=== PATIENT | male | born 1970 | race Caucasian/White ===

== ENCOUNTER → 2017-04-29 | Outpatient (CLI) | payer MEDICARE, MEDICAID ==
--- NOTE | 2017-04-29 13:47 | RADIOLOGY REPORT (SQ) ---
EXAM DESCRIPTION: U/S ABDOMEN COMPLETE W/O DOP COMPLETED DATE/TIME: 04/29/2017 12:35 pm REASON FOR STUDY: R10.9 ABDOMINAL PAIN, UNSPECIFIED ABDOMINAL LOCATION R10.9 UNSPECIFIED ABDOMINAL PAIN K85.90 ACUTE PANCREATITIS WITHOUT NECROSIS OR INFECTION, UNS COMPARISON: None. TECHNIQUE: Dynamic and static grayscale images acquired of the abdomen and recorded on PACS. Additio nal selected color Doppler and spectral images recorded. LIMITATIONS: Patient is autistic and was unable to cooperate with this scan FINDINGS: PANCREAS: Midline pancreas unremarkable. LIVER: Normal size liver. There is diffuse mild increased echogenicity from fatty infiltration or di ffuse hepatocellular disease. No biliary ductal dilatation LIVER VASCULATURE: Normal directional flow of the main portal vein and hepatic veins. GALLBLADDER: No stones. Normal wall thickness. No pericholecystic fluid. ULTRASOUND-DETECTED KAUR'S SIGN: Negative. INTRAHEPATIC DUCTS AND COMMON DUCT: CBD and intrahepatic ducts normal caliber. No filling defects. INFERIOR VENA CAVA: Normal flow. AORTA: No aneurysm. RIGHT KIDNEY: Normal size. Normal echogenicity. No solid or suspicious masses. No hydronephros is. No calcifications. LEFT KIDNEY: Normal size. Normal echogenicity. No solid or suspicious masses. No hydronephrosi s. No calcifications. SPLEEN: Limited visualization. No splenomegaly PERITONEAL AND PLEURAL SPACES: No ascites or effusions. OTHER: No other significant finding. IMPRESSION: No gallstones Increased echogenicity of the liver parenchyma, could be seen in diffuse hepatocellular disease or fa tty infiltration TECHNICAL DOCUMENTATION: JOB ID: [id number] [employer]- All Rights Reserved
== END ==
LOC: RAD 10:49
PROVIDERS: ATTEND Family Medicine
DX: R10.9 Unspecified abdominal pain (principal)
CPT/HCPCS: 76700

== ENCOUNTER → 2018-08-01 | Day surgery (SDC) | payer MEDICARE, MEDICAID ==
[~2018-08-01] MED LIST: DIPHENHYDRAMINE HCL 50 MG/ML VIAL ONE; EPINEPHRINE INJ 1 MG/10 ML DISP.SYRIN ONE; FLUMAZENIL INJ 0.5 MG/5 ML VIAL ONE; GLUCAGON,HUMAN RECOMB 1 MG INJ ONE; NALOXONE HCL INJ/PF 0.4 MG/1 ML SDV ONE; ONDANSETRON HCL INJ/PF 4 MG/2 ML SDV ONE
[2018-08-01] MEDS: MIDAZOLAM 2 MG/2 ML INJ ONE ×4 (15:45→16:42)
[2018-08-01] MEDS: FENTANYL CITRATE INJ/PF 100 MCG/2 ML AMPUL ONE ×2 (16:45→16:52)
[2018-08-02 08:27] VITALS: BP 142/100
== END ==
LOC: END 15:10
PROVIDERS: ATTEND Internal Medicine Gastroenterology
DX: R10.13 Epigastric pain (principal); R63.4 Abnormal weight loss
CPT/HCPCS: J2250; J3010; J0171; J1200; J1610; J2310; J2405; J3490

== ENCOUNTER 2019-06-15 00:31 | Emergency (ER) | payer MEDICARE, MEDICAID ==
[2019-06-15 00:42] VITALS: BP 142/98
--- NOTE | 2019-06-15 09:08 | ER Document Report ---
ED Wound - General Chief Complaint: Laceration Stated Complaint: FALL, HEAD INJURY Time Seen by Provider: 06/15/19 08:17 Primary Care Provider: DOMINGUEZ HART MD [Primary Care Provider] - Follow up as needed Notes: Patient is a 49-year-old male with a history of autism (is non verbal), hypothyroidism, hyperlipidemia and insomnia who presents to the emergency department with a chief complaint of head injury. Patient is a resident at [facility]. They state that he walked into the restroom last night and came out with a laceration to his forehead. This was unwitnessed. They state he is not on blood thinners. Staff members report that the patient has been acting himself and that becoming agitated when out of his element as per his normal. Patient has not had any vomiting. They deny any other injury. They report his tetanus shot was updated in 2017. They report this occurred around 11 PM last night. TRAVEL OUTSIDE OF THE [place] IN LAST 30 DAYS: No - Related Data Allergies/Adverse Reactions: Cephalosporins Adverse Reaction (Verified 06/15/19 00:44) phenytoin [From Dilantin] Adverse Reaction (Verified 06/15/19 00:44) Past Medical History - Social History Smoking Status: Never Smoker Frequency of alcohol use: None Drug Abuse: None Lives with: Other - [facility] Family History: Reviewed & Not Pertinent Patient has suicidal ideation: No Patient has homicidal ideation: No - Past Medical History Cardiac Medical History: Denies: Hx Coronary Artery Disease, Hx Heart Attack, Hx Hypertension Pulmonary Medical History: Denies: Hx Asthma, Hx Bronchitis, Hx COPD, Hx Pneumonia Neurological Medical History: Denies: Hx Cerebrovascular Accident, Hx Seizures Musculoskeletal Medical History: Denies Hx Arthritis - Immunizations Hx Diphtheria, Pertussis, Tetanus Vaccination: Yes Physical Exam - Vital signs Vitals: Temp BP 97.2 F 142/98 H 06/15/19 00:39 06/15/19 00:39 - Notes Notes: GENERAL: Well-appearing, well-nourished and in no acute distress. Pt. is autistic and non-verbal per his baseline. HEAD: 1 cm superficial laceration to the left forehead with small hematoma, normocephalic. Negative nj's sign, negative raccoon eyes. EYES: Pupils equal round and reactive to light, extraocular movements intact, sclera anicteric, conjunctiva are normal. PERRLA 3mm bilaterally. ENT: Nares patent, oropharynx clear without exudates. Moist mucous membranes. NECK: Normal range of motion, supple without lymphadenopathy or JVD. No c ervical midline tenderness. LUNGS: Breath sounds clear to auscultation bilaterally and equal. No wheezes rales or rhonchi. There is no ecchymosis, abrasions, lacerations, edema or erythema noted to the chest wall. There is no tenderness with palpation. HEART: Regular rate and rhythm without murmurs, rubs or gallops. ABDOMEN: Soft, nontender, normoactive bowel sounds. No guarding, no rebound. No masses appreciated. There is no ecchymosis, edema, lacerations or abrasions to the abdomen. BACK: No cervical, thoracic, lumbar midline tenderness. No saddle anesthesia, normal distal neurovascular exam. GENITOURINARY: Deferred. EXTREMITIES: Normal range of motion, no pitting or edema. No clubbing or cyanosis. NEUROLOGICAL: Cranial nerves II through XII grossly intact. Non verbal, normal gait. PSYCH: Autistic, becomes slightly irritated when approached by new staff members. SKIN: Warm, Dry, normal turgor, no rashes or lesions noted. Course - Re-evaluation Re-evalutation: 06/15/19 09:04 I did review the medication list and it did not reveal any blood thinners. Patient has been here for over 8 hours here in the emergency department without any vomiting or alteration in his level of consciousness. Patient has had intermittent agitation throughout the night as a staff members from the facility in which he lives state that when he is out of his element he does become agitated, other than that they report that he is at his baseline. Patient is calm and more cooperative with the new staff that came in from the facility this morning. The staff member that is at the bedside states that she works with the patient closely and knows him well and reiterates that he is acting his normal. Patient did ambulate to the restroom with a steady gait. They deny any other injuries. I did perform a thorough examination which did not reveal any other injury. The wound to the left side of the forehead is about 1 cm without active bleeding. This was cleaned with Shur-Clens and saline. 10 Steri-Strips were placed over the area as this is linear and superficial. Patient tolerated fairly well. There was assistance needed by the [facility] staff as he is familiar with them. I did give the staff members at care about strict return precautions and strict head injury precautions. 06/15/19 09:28 Prior to discharge vitals were attempted to be obtained. Patient is ambulating around the room and very anxious to leave. Patient's heart rate was 131. When patient was sitting in the chair and I auscultated heart sounds this was 98. I do believe that the tachycardia is due to the anxiety and when ambulating around the room as he is ready to leave. - Vital Signs Vital signs: Temp Pulse Resp BP Pulse Ox 97.5 F 131 H 22 H 142/98 H 96 06/15/19 00:41 06/15/19 09:26 06/15/19 09:26 06/15/19 00:41 06/15/19 09:26 Discharge - Discharge Clinical Impression: Head injury Qualifiers: Encounter type: initial encounter Qualified Code(s): S09.90XA - Unspecified injury of head, initial encounter Laceration of head Qualifiers: Encounter type: initial encounter Location of open wound of head: scalp Foreign body presence: without foreign body Qualified Code(s): S01.01XA - Laceration without foreign body of scalp, initial encounter Condition: Stable Disposition: HOME, SELF-CARE Additional Instructions: *Today was seen in the emergency department after a head injury. We did clean the wound which revealed a superficial laceration to the left side of the forehead. This was brought together with Steri-Strips. Please leave the Steri- Strips alone as they will fall off their own in about 7 to 10 days. Do expect small bruising around the area. He will be placed on strict head injury precautions. Please monitor over the next 24 hours. Please monitor for altered level of consciousness, vomiting, unequal pupils or any other new or worsening symptoms. If he does have any of the symptoms please return to the emergency department immediately. Head Injury Your child's examination shows no evidence of brain injury. The child can therefore be safely observed at home. Give clear liquids only for the first eight hours. Acetaminophen or ibuprofen can safely be given for pain. Follow the directions on the bottle. Do not give any medication that may alter her/his level of alertness. Limit activity for the first 24 hours -- bed rest is advisable at first. Several times during the first 24 hours, check the patient to see if the pupils are equal in size to each other, that the patient is easily arousable, and responds normally. Contact your doctor or go to the hospital if any of the following things occur: Persistent or projectile vomiting, a seizure, confusion, unequal pupil size, difficulty in arousing the patient, worsening or continued headache, or failure to improve as expected. Head Injury Precautions At this point, there is no evidence that your head injury is serious. Observation is necessary, however. Take only clear liquids for the first few hours, unless told otherwise by the doctor. If no pain medication was prescribed, you may take acetaminophen according to the directions on the bottle. Do not take any medication that may alter your level of alertness (unless you've discussed it with the doctor fir ). Limit activity for the first 24 hours. Bed rest is best. During the first 24 hours, check to see approximately every two to three hours that the patient is easily arousable, responds normally, and can perform common tasks such as walking without difficulty. Contact your doctor or go to the hospital if any of the following things occur: Persistent vomiting, difficulty in arousing the patient, worsening or continued headache, or failure to improve as expected. Head injuries can cause symptoms that persist for a few days or even a few weeks. NON-SUTURED LACERATION: Your laceration did not require suturing. Some lacerations cannot be sutured because of increased infection risk, while others simply don't need stitches because they are shallow or very short. Your injury should be protected while it heals. Usually complete healing takes 10 to 14 days. Keep the dressing clean and dry, and change it every day. If you notice increasing pain, redness, swelling, drainage, or tender lumps in the armpit or groin above the injury, infection may be present. You should call the doctor at once. SOAP CLEANSING: Gently wash the wound daily using a mild soap (like Ivory, Phisoderm, Neutrogena). Use warm water, rubbing gently until all debris, ooze, and crusting have been washed from the wound. Allow to dry briefly (about 10 m inutes) after cleaning. Repeat this cleansing at least three times a day for the first two days and then once or twice a day. ANTIBIOTIC OINTMENT PROTECTION: Your wounds are such that dressing them is not practical or optional. After cleansing, you should apply a thin coating of antibiotic ointment (Bacitracin, not Neosporin) to the wounds at least three times daily. This lessens infection risk, and may decrease the amount of scarring. Use a q-tip or dull butter knife, not your finger, to apply this ointment. Any debris or ooze which builds up in the ointment should be gently rubbed off with a sterile gauze pad. Harder crusting may need to be gently scrubbed off with a clean wash cloth with soap and warm water, perhaps applying a warm, wet wash cloth to the wound for ten minutes first. Development of redness, severe itching, or blistering may mean allergy to the ointment. See the doctor. If you have been referred to another physician for follow-up care, call that physicians office for an appointment as you were instructed. If you experience a significant change in your laceration, or if you are concerned there may be an infection (swelling, redness, drainage, increasing tenderness, red streaks, tender lumps in the armpit or groin above the laceration, or fever), return to the Emergency Department immediately re-evaluation. Referrals: DOMINGUEZ HART MD [Primary Care Provider] - Follow up as needed
== END 2019-06-15 09:26 | disposition home or self-care (01) ==
LOC: ER 00:31
DX: S09.90XA Unspecified injury of head, initial encounter (principal); S01.01XA Laceration without foreign body of scalp, initial encounter; W19.XXXA Unspecified fall, initial encounter; F84.0 Autistic disorder; G47.00 Insomnia, unspecified
CPT/HCPCS: 99283